=== PATIENT | female | born 1965 ===

== ENCOUNTER 2017-04-30 12:41 | Observation (INO) | payer MEDICARE ==
[2017-04-30 12:42] VITALS: BMI 32.4
[2017-04-30 13:55] LABS: BASO % 0.5 % (0.0-2.0); EOS # 0.1 K/uL (0.0-0.7); EOS % 1.1 % (0.0-4.0); LYMPH # 1.9 K/uL (1.0-4.3); MEAN CELL VOLUME 88.8 fL (81.0-99.0); MEAN CORPUSCULAR HEMOGLOBIN 29.4 pg (27.0-31.0); MEAN CORPUSCULAR HGB CONC 33.1 g/dL (33.0-37.0); MEAN PLATELET VOLUME 9.8 fL (7.2-11.7); MONO # 0.4 K/uL (0.0-0.8); MONO % 6.4 % (0.0-10.0); RED CELL DISTRIBUTION WIDTH 14.4 % (11.5-14.5)
[2017-04-30 14:33] LABS: ALB/GLOB RATIO 1.1 (1.0-2.1); ALKALINE PHOSPHATASE 98 U/L (38-126); ALT/SGPT 30 U/L (9-52); AST/SGOT 26 U/L (14-36); BILIRUBIN,TOTAL 0.9 mg/dL (0.2-1.3); BLOOD UREA NITROGEN 12 mg/dL (7-17); CALCIUM 8.9 mg/dl (8.6-10.4); CARBON DIOXIDE 28 mmol/L (22-30); CHLORIDE 100 mmol/L (98-107); GFR AFRICAN-AMERICAN > 60; GLUCOSE,RANDOM 89 mg/dL (65-105); MAGNESIUM 1.9 mg/dL (1.6-2.3); POTASSIUM 3.7 mmol/L (3.6-5.2); SODIUM 143 mmol/L (132-148); TOTAL PROTEIN 8.1 g/dL (6.3-8.3)
[2017-04-30 14:33] LABS: FREE T4 1.27 ng/dL (0.78-2.19)
[2017-04-30 14:47] LABS: THYROID STIMULATING HORMONE 4.39 mIU/L (0.46-4.68)
--- NOTE | 2017-04-30 15:27 | RAD ---
HISTORY: Chest pain COMPARISON: No prior. FINDINGS: LUNGS: No active pulmonary disease. PLEURA: No significant pleural effusion identified, no pneumothorax apparent. CARDIOVASCULAR: Normal. OSSEOUS STRUCTURES: No significant abnormalities. VISUALIZED UPPER ABDOMEN: Normal. OTHER FINDINGS: None. IMPRESSION: No acute cardiopulmonary disease appreciated.
[2017-04-30] MEDS ORDERED: Enoxaparin 80 mg Syringe SC STA (15:28)
--- NOTE | 2017-04-30 15:34 | C.PDOC ---
Time Seen by Provider: 04/30/17 13:24 Chief Complaint (Nursing): Chest Pain History Per: Patient Onset/Duration Of Symptoms: Days (3), Intermittent Episodes Current Symptoms Are (Timing): Still Present Severity: Moderate Quality: Sharp, "Pain" Associated Symptoms: Diaphoresis, Other (Palpitations) Modifying Factors: Other Indicated Below Exacerbating Factors: Deep Breathing Alleviating Factors: None Additional History Per: Prior Records Past Medical History Reviewed: Historical Data, Nursing Documentation, Vital Signs Vital Signs: Last Vital Signs Temp 97.8 F 04/30/17 12:57 Pulse 74 04/30/17 12:57 Resp 17 04/30/17 12:57 BP 116/79 04/30/17 12:57 Pulse Ox 100 04/30/17 15:36 - Medical History PMH: Back Problems (herniated discs x 6), Fibromyalgia, Hypothyroidism - [facility] Procedures HEMORRHOIDECTOMY (11/11/12) OTH LOCAL EXC OR DEST OF LESION OR TISSUE OF ANUS (11/11/12) POST SPHINCTEROTOMY (11/11/12) RIGID PROCTOSIGMOIDOSCOPY (11/11/12) Family History: States: Unknown Family Hx - Social History Hx Tobacco Use: No Hx Alcohol Use: No Hx Substance Use: No - Immunization History Hx Tetanus Toxoid Vaccination: No Hx Influenza Vaccination: No Hx Pneumococcal Vaccination: No Review Of Systems Except As Marked, All Systems Reviewed And Found Negative. Constitutional: Negative for: Fever Cardiovascular: Positive for: Chest Pain, Palpitations, Light Headedness Respiratory: Positive for: Shortness of Breath. Negative for: Hemoptysis Gastrointestinal: Negative for: Vomiting, Abdominal Pain Musculoskeletal: Negative for: Neck Pain Skin: Negative for: Rash Neurological: Negative for: Weakness, Numbness Physical Exam - Physical Exam Appears: Non-toxic, No Acute Distress Skin: Normal Color, Warm, Dry, No Rash Head: Atraumatic, Normacephalic Eye(s): bilateral: PERRL, EOMI Neck: Normal ROM, Supple Chest: Symmetrical, No Deformity, No Tenderness Cardiovascular: Rhythm Regular Respiratory: Normal Breath Sounds, No Accessory Muscle Use Gastrointestinal/Abdominal: Soft, No Tenderness Back: No CVA Tenderness Extremity: Normal ROM, No Pedal Edema, No Calf Tenderness Neurological/Psych: Oriented x3, Normal Motor, Normal Sensation ED Course And Treatment - Laboratory Results Result Diagrams: 04/30/17 13:51 04/30/17 14:16 Interpretation Of Abnormal: D-Dimer is positive. ECG: Interpreted By Me, Viewed By Me ECG Rhythm: Sinus Rhythm, 1st Degree HB, Nonspecific Changes ECG Interpretation: No Acute Changes Rate From EC O2 Sat by Pulse Oximetry: 100 Pulse Ox Interpretation: Normal - Radiology CXR: Interpreted by Me, Viewed By Me CXR Interpretation: Yes: No Acute Disease Progress Note: Pt is refusing CTA because she states that she had a previous "reaction" to IV dye. V/Q scan will be ordered instead. Progress - Interventions Interventions:: Observation - Medications Administered Oral: Aspirin Subcutaneous: other (Lovenox) - Data Reviewed Data Reviewed: Lab, Diagnostic imaging, EKG, Old records - Patient Status Patient status: Partially improved - Continuity of Care Discussed patient case with:: Patient, Family-HIPPA compliant, ED Nurse, Covering for PMD Disposition Discussed With : Jackson Martinez Comment: He accepted pt on hospitalist service. Doctor Will See Patient In The: Hospital Counseled Patient/Family Regarding: Studies Performed, Diagnosis - Disposition Disposition: HOSPITALIZED Disposition Time: 15:39 Condition: FAIR - Clinical Impression Clinical Impression: Chest pain, Heart palpitations
[2017-04-30] MEDS ORDERED: Enoxaparin 80 mg Syringe ONE (15:42)
[2017-04-30 16:04] LABS: FREE T4 1.36 ng/dL (0.78-2.19)
[2017-04-30 16:18] LABS: THYROID STIMULATING HORMONE 3.68 mIU/L (0.46-4.68)
--- NOTE | 2017-04-30 16:18 | CP.PCM.HP ---
History of Present Illness - History of Present Illness History of Present Illness: HPI: Patient is a 52 year old female with past medical history of hypothyroidism , palpitations, and rectal abscess and fistula and lumbar herniated discs, who presents to the ED with intense palpitations that started this morning at 10am while driving. Patient states that she has been having intermittent chest discomfort, pain on inspiration and palpitations for the past 3 days. Patient states that her pain on inspiration radiates to her left upper back and below her left breast. Patient states that her symptoms are exacerbated with bending, lifting and laying down and better when she takes her iron supplement. Patient recently had a cardiac catherization November 27 for palpitation work-up, however , patient was told that her results were normal PMD: Dr. Abbott Healthy Proxy: No written advance directive PMHx: Hypothyroidism, palpitations, and rectal abscess and fistula, lumbar herniated disc PSHx: Cardiac catherization (November 27) [place] [facility] [place] Rectal abscess/fistula surgery X4 FHx: * Mother: HTN and age 75 * Father: Healthy, age 72 * Maternal grandmother: from complications of endometrial cancer Medications: Levothyroxine 75 mcg PO daily, iron supplements and multivitamins Allergies: Questionable dye allergy ( Patient she had a reaction to dye during her cardiac catherization with symptoms of weakness and feeling sick) Social History: On disability, lives with and daughter. Denies former and current use of tobacco, ETOH and illicit drug use Present on Admission - Present on Admission Any Indicators Present on Admission: No Review of Systems - Constitutional Constitutional: Weakness. absent: Chills, Fever, Headache - EENT Eyes: absent: Blurred Vision, Change in Vision Ears: Dizziness - Cardiovascular Cardiovascular: Dyspnea, Lightheadedness, Palpitations. absent: Chest Pain, Chest Pain at Rest, Leg Edema, Pedal Edema, Syncope Additional comments: Chest discomfort - Gastrointestinal Gastrointestinal: absent: Abdominal Pain, Constipation, Diarrhea, Nausea, Vomiting - Neurological Neurological: Dizziness, Headaches, Weakness. absent: Syncope - Psychiatric Psychiatric: absent: Anxiety - Endocrine Endocrine: Fatigue, Palpitations Past Patient History - Past Social History Smoking Status: Never Smoked - CARDIAC Hx Pacemaker: No - ENDOCRINE/METABOLIC Hx Hypothyroidism: Yes - HEMATOLOGICAL/ONCOLOGICAL Hx Blood Transfusions: No Hx Blood Transfusion Reaction: No - MUSCULOSKELETAL/RHEUMATOLOGICAL Hx Musculoskeletal Disorders: Yes (FIBROMYALGIA) - PSYCHIATRIC Hx Substance Use: No - SURGICAL HISTORY Hx Surgeries: Yes (SIGMOIDOSCOPY AND DRAINAGE OF RECTAL ABSCESS) - ANESTHESIA Hx Anesthesia Reactions: No Hx Malignant Hyperthermia: No Meds Allergies/Adverse Reactions: Allergies Allergy/AdvReac Type Severity Reaction Status Date / Time Egg Derived Allergy Intermediate DIARRHEA Verified 04/30/17 13:10 Milk Containing Products Allergy Intermediate DIARRHEA Verified 04/30/17 13:10 Physical Exam - Constitutional Appears: No Acute Distress - Head Exam Head Exam: ATRAUMATIC, NORMAL INSPECTION - Eye Exam Eye Exam: EOMI, Normal appearance - ENT Exam ENT Exam: Mucous Membranes Moist - Respiratory Exam Respiratory Exam: Clear to Auscultation Bilateral, NORMAL BREATHING PATTERN. absent: Accessory Muscle Use, Decreased Breath Sounds, Prolonged Expiratory Phase, Respiratory Distress - Cardiovascular Exam Cardiovascular Exam: REGULAR RHYTHM, +S1, +S2. absent: Tachycardia - GI/Abdominal Exam GI & Abdominal Exam: Normal Bowel Sounds, Soft. absent: Diminished Bowel Sounds , Distended, Firm, Guarding, Tenderness - Extremities Exam Extremities exam: Positive for: normal inspection, tenderness. Negative for: calf tenderness, pedal edema Additional comments: Tenderness in the right medial thigh since cardiac catherization (11/27/16) - Neurological Exam Neurological exam: Alert, Oriented x3 - Psychiatric Exam Psychiatric exam: Normal Affect, Normal Mood - Skin Skin Exam: Normal Color Results - Vital Signs Recent Vital Signs: Last Vital Signs Temp 97.8 F 04/30/17 12:57 Pulse 74 04/30/17 12:57 Resp 17 04/30/17 12:57 BP 116/79 04/30/17 12:57 Pulse Ox 100 04/30/17 15:39 - Labs Result Diagrams: 04/30/17 13:51 04/30/17 14:16 Labs: Laboratory Results - last 24 hr 04/30/17 04/30/17 04/30/17 13:51 13:51 14:16 WBC 7.0 RBC 5.07 Hgb 14.9 Hct 45.0 MCV 88.8 MCH 29.4 MCHC 33.1 RDW 14.4 Plt Count 198 MPV 9.8 Neut % (Auto) 65.0 Lymph % (Auto) 27.0 Ballard % (Auto) 6.4 Eos % (Auto) 1.1 Baso % (Auto) 0.5 Neut # 4.6 Lymph # 1.9 Ballard # 0.4 Eos # 0.1 Baso # 0.0 PT 10.9 INR 1.0 APTT 41 H D-Dimer, Quantitative 352 H Sodium Potassium Chloride Carbon Dioxide Anion Gap BUN Creatinine Est GFR ( Amer) Est GFR (Non-Af Amer) Random Glucose Calcium Magnesium Total Bilirubin AST ALT Alkaline Phosphatase Troponin I NT-Pro-B Natriuret Pep Total Protein Albumin Globulin Albumin/Globulin Ratio Free T4 1.27 TSH 3rd Generation 4.39 04/30/17 04/30/17 14:16 14:34 WBC RBC Hgb Hct MCV MCH MCHC RDW Plt Count MPV Neut % (Auto) Lymph % (Auto) Ballard % (Auto) Eos % (Auto) Baso % (Auto) Neut # Lymph # Ballard # Eos # Baso # PT INR APTT D-Dimer, Quantitative Sodium 143 Potassium 3.7 Chloride 100 Carbon Dioxide 28 Anion Gap 18 BUN 12 Creatinine 0.7 Est GFR ( Amer) > 60 Est GFR (Non-Af Amer) > 60 Random Glucose 89 Calcium 8.9 Magnesium 1.9 Total Bilirubin 0.9 AST 26 ALT 30 Alkaline Phosphatase 98 Troponin I < 0.0120 NT-Pro-B Natriuret Pep 65.5 Total Protein 8.1 Albumin 4.3 Globulin 3.8 Albumin/Globulin Ratio 1.1 Free T4 1.36 TSH 3rd Generation Assessment & Plan (1) Atypical chest pain Assessment and Plan: Admit to observation, telemetry * YARI panel negative X1, F/u YARI x2 * EKG: NSR, first heart degree * TSH: 4.39, Free T4: 1.27 * D-dimer: 352 Status: Acute (2) Elevated d-dimer Assessment and Plan: On admission: D-dimer: [address] angiogram, due to reaction to dye during her recent cardiac catherization with symptoms of weakness and feeling sick). Dr. Ellis try to convince the patient for a CT angiogram at length but patient continues to refuse, thus a V/Q scan was obtained. F/u V/Q scan F/u b/l LE venous doppler Management: * Lovenox 80mg SC daily once Status: Acute (3) History of hypothyroidism Assessment and Plan: Labs: * TSH: 4.39, Free T4: 1.27 Continue home medication: * Levothyroxine 75mcg PO daily Status: Acute (4) Prophylactic measure Assessment and Plan: GI: not indicated DVT: Risk score: 2, received Lovenox 80mg SC. Will restart lovenox in the am Status: Acute
--- NOTE | 2017-04-30 17:33 | NM ---
COMPARISON: 04/30/2017 TECHNIQUE: 8.9 mCi technetium 99-m Xe-133 Gas. 3.9 mCI technetium 99-m MAA administered intravenously. FINDINGS: VENTILATION COMPONENT: Normal. PERFUSION COMPONENT: Heterogeneous distribution of radionuclide. No geographic, segmental, lobar abnormalities apparent on the present examination. IMPRESSION: Low probability ventilation perfusion scan for pulmonary embolism.
[2017-05-01 01:34] VITALS: RESP 20
[2017-05-01] MEDS ORDERED: Levothyroxine 75 MCG TAB PO SCH (06:30)
[2017-05-01 08:09] VITALS: BP 105/69; PULSE 60; TEMP 97.9; O2SAT 97
[2017-05-01] MEDS ORDERED: Enoxaparin 80 mg Syringe SC SCH (10:00)
--- NOTE | 2017-05-01 10:45 | CP.PCM.PN ---
Subjective - Date & Time of Evaluation Date of Evaluation: 05/01/17 Time of Evaluation: 10:15 - Subjective Subjective: Hospitalist Progress Note Patient was seen and examined at 10:15 AM 05/01/17 665 A Patient was admitted on evening of 04/30/17 for evaluation of left sided chest pain that was radiating to her left back. D-dimer was elevated and CT Angio Chest was recommended to rule out PE as well as Aortic Dissection. However, patient declined due to her response to contrast dye S/P Cardiac Catheterization in October 2016: she stated that it caused her to be tired and "layed up in bed for 2 months". I explained to that I did not believe that this was due to conrast dye from the catheterization and explained in detail the importance of ruling out PE and Aortic Dissection. However, patient declined. V/ Q Scan was done and showed low probability for PE. Venous Dopplers of the legs did not show any DVT. Cardiac Troponin x 3 were negative and EKG was also unremarkable. [place] [facility] [place] which was negative as per patient. I spoke with Adoption Manager Dr. So who explained to me that he would be happy to follow up patient in the office. Patient is chest pain free this morning. Her vitals are stable. For her history of Rectal Abscess (none noted on Rectal Exam by me with ER nurse on 04/30/17 and no evidence of perirectal lesions/fistulas) she already has follow up scheduled with her Workers Compensation Paralegal Dr. Earl for Thursday05/04/17. She stated that had enough of her home medication of Levothyroxine for her history of Hypothyroid. She is cleared for discharge. Upon ROS: NO chest pain at the moment NO SOB/Cough NO n/v/d/c (last bowel movement was yesterday) NO burning/pain with urination NO headache NO abdominal pain NO lightheadedness/dizziness NO paresthesias NO edema NO other complaints upon FULL ROS Exam: HEENT: PERRLA, EOMI, NO cervical lymphadenopathy, NO pharyngeal erythema/exudate , NO thyromegaly, Mucous Membranes are moist Cardio: NS1 and NS2, NO M/R/G Resp: CTA B/L, NO R/R/W GI: BSx4, Soft, NT, ND, NO HSM, NO guarding/rebound tenderness Ext: NO edema, Capillary Refill is 2 seconds, Pulses are strong and equal Neuro: CN II through XII are grossly intact Assessments: 1). Atypical Chest Pain 2). Elevated D-Dimer 3). Hx Hypothyroidism 4). Hx Rectal Abscess/Pain 5). Hx Fibromyalgia The following instructions were explained to patient and copy will be provided to her upon discharge: 1). Please make sure to follow up with your Primary Care Physician Dr. Lauri Abbott in the next 7 to 10 days. 2). Through Dr. Abbott's office obtain referral for Adoption Manager Dr. So and schedule an appointment with him for further cardiac evaluation by calling [phone]. 3). Follow up as scheduled with your Workers Compensation Paralegal Dr. Earl on Thursday05/04/17 for your history of rectal pain/abscess. 4). As discussed with you in the emergency room on 04/30/17, we do recommend that you get CT Angiogram Chest with contrast performed for further evaluation of the arteries in your chest to make sure that there is no tears in the arteries. You can get this done through your Primary Care Physician Dr. Lauri Abbott. 5). Please continue your home medication of Levothyroxine which you stated you had enough of. 6). Please also follow up with a Pharmacist In Charge for your history of Fibromyalgia. Obtain consult through your Primar Care Physician Dr. Lauri Abbott. 7). Please take care and be well. Jackson Martinez D.O. Objective - Vital Signs/Intake and Output Vital Signs (last 24 hours): Temp Pulse Resp BP Pulse Ox 97.9 F 60 20 105/69 97 05/01/17 08:08 05/01/17 08:08 05/01/17 08:08 05/01/17 08:08 05/01/17 08:08 Intake and Output: 05/01/17 05/01/17 06:59 18:59 Intake Total 150 Balance 150 - Medications Medications: Current Medications Enoxaparin Sodium (Lovenox) 80 mg SC DAILY [facility] Levothyroxine Sodium (Synthroid) 75 mcg PO DAILY@0630 [facility] Last Admin: 05/01/17 05:52 Dose: 75 mcg - Labs Labs: 04/30/17 13:51 04/30/17 14:16 PT 10.9 SECONDS (9.7-12.2) 04/30/17 14:16 INR 1.0 04/30/17 14:16 APTT 41 SECONDS (21-34) H 04/30/17 14:16
--- NOTE | 2017-05-01 15:07 | VASCLAB ---
PROCEDURE: Lower Extremity Venous Duplex Exam. HISTORY: Palpitations, chest discomfort and elevated D-dimer PRIORS: None. TECHNIQUE: Bilateral common femoral, femoral, popliteal and posterior tibial, peroneal and great saphenous veins were evaluated. Flow was assessed with color Doppler, compressibility, assessment of phasic flow and augmentation response. Report prepared by ANTONIETA Browne, RVT FINDINGS: RIGHT: 1. Common Femoral Vein: 1.1. Compressibility - Fully compressible: Thrombus - None : Flow - Phasic: Augmentation -Normal: Reflux - None. 2. Femoral Vein: 2.1. Compressibility - Fully compressible: Thrombus - None : Flow - Phasic: Augmentation -Normal: Reflux - None. 3. Popliteal Vein: 3.1. Compressibility - Fully compressible: Thrombus - None : Flow - Phasic: Augmentation -Normal: Reflux - None. 4. Posterior Tibial Vein: 4.1. Compressibility - Fully compressible: Thrombus - None: Flow - Phasic: Augmentation -Normal: Reflux - None. 5. Peroneal Vein: 5.1. Compressibility - Fully compressible: Thrombus - None: Flow - Phasic: Augmentation -Normal: Reflux - None. 6. Great Saphenous Vein: 6.1. Compressibility - Fully compressible: Thrombus - None: Flow - Phasic: Augmentation - Normal: Reflux - None. LEFT: 1. Common Femoral Vein: 1.1. Compressibility - Fully compressible: Thrombus - None: Flow - Phasic: Augmentation -Normal: Reflux - None. 2. Femoral Vein: 2.1. Compressibility - Fully compressible: Thrombus - None: Flow - Phasic: Augmentation -Normal: Reflux - None. 3. Popliteal Vein: 3.1. Compressibility - Fully compressible: Thrombus - None : Flow - Phasic: Augmentation -Normal: Reflux - None. 4. Posterior Tibial Vein: 4.1. Compressibility - Fully compressible: Thrombus - None: Flow - Phasic: Augmentation -Normal: Reflux - None. 5. Peroneal Vein: 5.1. Compressibility - Fully compressible: Thrombus - None: Flow - Phasic: Augmentation -Normal: Reflux - None. 6. Great Saphenous Vein: 6.1. Compressibility - Fully compressible: Thrombus - None: Flow - Phasic: Augmentation - Normal: Reflux - None. OTHER FINDINGS: Right: None significant. Left: None significant. IMPRESSION: Right: No evidence of deep or superficial vein thrombosis of the right lower extremity. Normal valve function noted of the right side. Left: No evidence of deep or superficial vein thrombosis of the left lower extremity. Normal valve function noted of the left side.
--- NOTE | 2017-05-01 15:29 | CP.PCM.DIS ---
<Karena Dhaliwal - Last Filed: 05/01/17 15:27> Provider - Provider Date of Admission: 04/30/17 15:39 Attending physician: Jackson Martinez MD Time Spent in preparation of Discharge (in minutes): 40 Hospital Course - Lab Results Lab Results: Most Recent Lab Values WBC 7.0 K/uL (4.8-10.8) 04/30/17 13:51 RBC 5.07 Mil/uL (3.80-5.20) 04/30/17 13:51 Hgb 14.9 g/dL (11.0-16.0) 04/30/17 13:51 Hct 45.0 % (34.0-47.0) 04/30/17 13:51 MCV 88.8 fL (81.0-99.0) 04/30/17 13:51 MCH 29.4 pg (27.0-31.0) 04/30/17 13:51 MCHC 33.1 g/dL (33.0-37.0) 04/30/17 13:51 RDW 14.4 % (11.5-14.5) 04/30/17 13:51 Plt Count 198 K/uL (130-400) 04/30/17 13:51 MPV 9.8 fL (7.2-11.7) 04/30/17 13:51 Neut % (Auto) 65.0 % (50.0-75.0) 04/30/17 13:51 Lymph % (Auto) 27.0 % (20.0-40.0) 04/30/17 13:51 Tripp % (Auto) 6.4 % (0.0-10.0) 04/30/17 13:51 Eos % (Auto) 1.1 % (0.0-4.0) 04/30/17 13:51 Baso % (Auto) 0.5 % (0.0-2.0) 04/30/17 13:51 Neut # 4.6 K/uL (1.8-7.0) 04/30/17 13:51 Lymph # 1.9 K/uL (1.0-4.3) 04/30/17 13:51 Tripp # 0.4 K/uL (0.0-0.8) 04/30/17 13:51 Eos # 0.1 K/uL (0.0-0.7) 04/30/17 13:51 Baso # 0.0 K/uL (0.0-0.2) 04/30/17 13:51 PT 10.9 SECONDS (9.7-12.2) 04/30/17 14:16 INR 1.0 04/30/17 14:16 APTT 41 SECONDS (21-34) H 04/30/17 14:16 D-Dimer, Quantitative 352 ng/mlDDU (0-243) H 04/30/17 14:16 Sodium 143 mmol/L (132-148) 04/30/17 14:16 Potassium 3.7 mmol/L (3.6-5.2) 04/30/17 14:16 Chloride 100 mmol/L (98-107) 04/30/17 14:16 Carbon Dioxide 28 mmol/L (22-30) 04/30/17 14:16 Anion Gap 18 (10-20) 04/30/17 14:16 BUN 12 mg/dL (7-17) 04/30/17 14:16 Creatinine 0.7 mg/dL (0.7-1.2) 04/30/17 14:16 Est GFR ( Amer) > 60 04/30/17 14:16 Est GFR (Non-Af Amer) > 60 04/30/17 14:16 Random Glucose 89 mg/dL (65-105) 04/30/17 14:16 Calcium 8.9 mg/dl (8.6-10.4) 04/30/17 14:16 Magnesium 1.9 mg/dL (1.6-2.3) 04/30/17 14:16 Total Bilirubin 0.9 mg/dL (0.2-1.3) 04/30/17 14:16 AST 26 U/L (14-36) 04/30/17 14:16 ALT 30 U/L (9-52) 04/30/17 14:16 Alkaline Phosphatase 98 U/L (38-126) 04/30/17 14:16 Total Creatine Kinase 64 U/L (30-135) 05/01/17 03:02 CK-MB (Mass) < 0.22 ng/mL (0.0-3.38) 05/01/17 03:02 Troponin I < 0.0120 ng/mL (0.00-0.120) 05/01/17 03:02 NT-Pro-B Natriuret Pep 65.5 pg/mL (0-900) 04/30/17 14:16 Total Protein 8.1 g/dL (6.3-8.3) 04/30/17 14:16 Albumin 4.3 g/dL (3.5-5.0) 04/30/17 14:16 Globulin 3.8 gm/dL (2.2-3.9) 04/30/17 14:16 Albumin/Globulin Ratio 1.1 (1.0-2.1) 04/30/17 14:16 Free T4 1.36 ng/dL (0.78-2.19) 04/30/17 14:34 TSH 3rd Generation 3.68 mIU/L (0.46-4.68) 04/30/17 14:34 - Hospital Course Hospital Course: HPI: Patient is a 52 year old female with past medical history of hypothyroidism , palpitations, and rectal abscess and fistula and lumbar herniated discs, who presents to the ED with intense palpitations that started this morning at 10am while driving. Patient states that she has been having intermittent chest discomfort, pain on inspiration and palpitations for the past 3 days. Patient states that her pain on inspiration radiates to her left upper back and below her left breast. Patient states that her symptoms are exacerbated with bending, lifting and laying down and better when she takes her iron supplement. Patient recently had a cardiac catherization November 27 for palpitation work-up, however , patient was told that her results were normal PMD: Dr. Abbott Healthy Proxy: No written advance directive PMHx: Hypothyroidism, palpitations, and rectal abscess and fistula, lumbar herniated disc PSHx: Cardiac catherization (November 27) at [facility] and Rectal abscess/fistula surgery X4 FHx: * Mother: HTN and age 75 * Father: Healthy, age 72 * Maternal grandmother: from complications of endometrial cancer Medications: Levothyroxine 75 mcg PO daily, iron supplements and multivitamins Allergies: Questionable dye allergy ( Patient she had a reaction to dye during her cardiac catherization with symptoms of weakness and feeling sick) Social History: On disability, lives with and daughter. Denies former and current use of tobacco, ETOH and illicit drug use Hospital Course: Upon admission the following diagnostic and imaging tests were conducted: EKG: Normal Sinus Rhythm. CXR: No acute cardiopulmonary disease appreciated. Troponins were negative x3 Duplex Scan Lower Extremity Artery: No abnormal findings. Lung Scan/VQ Scan: Low probability ventilation perfusion scan for pulmonary embolism. CT Angio of the Chest was recommended to rule out PE as well as Aortic Dissection but the patient denied over the fear of allergy to contrast dye. Patient was notified about the importance of ruling out PE and Aortic Dissection , patient continued to deny the CT Angio Chest. V/Q scan and Venous Dopplers were conducted. Patient was seen this morning and did not have any chest pain. She does complain of chronic rectal pain due to her history of Rectal Abscesses. None were noted on Rectal exam. Patients vitals are stable. Patient is cleared for discharge. This is brief summary of the patients hospital course. Please review EMR for full record. The following instructions were explained to patient and copy will be provided to her upon discharge: 1). Please make sure to follow up with your Primary Care Physician Dr. Lauri Abbott in the next 7 to 10 days. 2). Through Dr. Abbott's office obtain referral for Tool Grinder Operator External Dr. So and schedule an appointment with him for further cardiac evaluation by calling [phone]. 3). Follow up as scheduled with your Dietary Aide Teacher Dr. Earl on Thursday05/04/17 for your history of rectal pain/abscess. 4). As discussed with you in the emergency room on 04/30/17, we do recommend that you get CT Angiogram Chest with contrast performed for further evaluation of the arteries in your chest to make sure that there is no tears in the arteries. You can get this done through your Primary Care Physician Dr. Lauri Abbott. 5). Please continue your home medication of Levothyroxine which you stated you had enough of. 6). Please also follow up with a Puff Iron Operator for your history of Fibromyalgia. Obtain consult through your Primar Care Physician Dr. Lauri Abbott. 7). Please take care and be well. Discharge Exam - Head Exam Head Exam: ATRAUMATIC, NORMAL INSPECTION - Eye Exam Eye Exam: EOMI, Normal appearance - ENT Exam ENT Exam: Mucous Membranes Moist - Respiratory Exam Respiratory Exam: Clear to PA & Lateral, NORMAL BREATHING PATTERN. absent: Rales, Rhonchi, Wheezes, Stridor - Cardiovascular Exam Cardiovascular Exam: REGULAR RHYTHM, RRR, +S1, +S2 - GI/Abdominal Exam GI & Abdominal Exam: Normal Bowel Sounds, Soft. absent: Tenderness - Extremities Exam Extremities exam: normal inspection - Neurological Exam Neurological exam: Alert, Oriented x3 - Psychiatric Exam Psychiatric exam: Normal Affect, Normal Mood - Skin Skin Exam: Normal Color, Warm Discharge Plan - Follow Up Plan Condition: FAIR Disposition: HOME/ ROUTINE Instructions: Chest Pain (DC), Palpitations (DC), Heart Healthy Diet (DC) Additional Instructions: The following instructions were explained to patient and copy will be provided to her upon discharge: 1). Please make sure to follow up with your Primary Care Physician Dr. Lauri Abbott in the next 7 to 10 days. 2). Through Dr. Abbott's office obtain referral for Tool Grinder Operator External Dr. So and schedule an appointment with him for further cardiac evaluation by calling [phone]. 3). Follow up as scheduled with your Dietary Aide Teacher Dr. Earl on Thursday05/04/17 for your history of rectal pain/abscess. 4). As discussed with you in the emergency room on 04/30/17, we do recommend that you get CT Angiogram Chest with contrast performed for further evaluation of the arteries in your chest to make sure that there is no tears in the arteries. You can get this done through your Primary Care Physician Dr. Lauri Abbott. 5). Please continue your home medication of Levothyroxine which you stated you had enough of. 6). Please also follow up with a Puff Iron Operator for your history of Fibromyalgia. Obtain consult through your Primar Care Physician Dr. Lauri Abbott. 7). Please take care and be well. <Jackson Martinez - Last Filed: 05/01/17 19:10> Provider - Provider Date of Admission: 04/30/17 15:39 Attending physician: Jackson Martinez MD Hospital Course - Lab Results Lab Results: Most Recent Lab Values WBC 7.0 K/uL (4.8-10.8) 04/30/17 13:51 RBC 5.07 Mil/uL (3.80-5.20) 04/30/17 13:51 Hgb 14.9 g/dL (11.0-16.0) 04/30/17 13:51 Hct 45.0 % (34.0-47.0) 04/30/17 13:51 MCV 88.8 fL (81.0-99.0) 04/30/17 13:51 MCH 29.4 pg (27.0-31.0) 04/30/17 13:51 MCHC 33.1 g/dL (33.0-37.0) 04/30/17 13:51 RDW 14.4 % (11.5-14.5) 04/30/17 13:51 Plt Count 198 K/uL (130-400) 04/30/17 13:51 MPV 9.8 fL (7.2-11.7) 04/30/17 13:51 Neut % (Auto) 65.0 % (50.0-75.0) 04/30/17 13:51 Lymph % (Auto) 27.0 % (20.0-40.0) 04/30/17 13:51 Tripp % (Auto) 6.4 % (0.0-10.0) 04/30/17 13:51 Eos % (Auto) 1.1 % (0.0-4.0) 04/30/17 13:51 Baso % (Auto) 0.5 % (0.0-2.0) 04/30/17 13:51 Neut # 4.6 K/uL (1.8-7.0) 04/30/17 13:51 Lymph # 1.9 K/uL (1.0-4.3) 04/30/17 13:51 Tripp # 0.4 K/uL (0.0-0.8) 04/30/17 13:51 Eos # 0.1 K/uL (0.0-0.7) 04/30/17 13:51 Baso # 0.0 K/uL (0.0-0.2) 04/30/17 13:51 PT 10.9 SECONDS (9.7-12.2) 04/30/17 14:16 INR 1.0 04/30/17 14:16 APTT 41 SECONDS (21-34) H 04/30/17 14:16 D-Dimer, Quantitative 352 ng/mlDDU (0-243) H 04/30/17 14:16 Sodium 143 mmol/L (132-148) 04/30/17 14:16 Potassium 3.7 mmol/L (3.6-5.2) 04/30/17 14:16 Chloride 100 mmol/L (98-107) 04/30/17 14:16 Carbon Dioxide 28 mmol/L (22-30) 04/30/17 14:16 Anion Gap 18 (10-20) 04/30/17 14:16 BUN 12 mg/dL (7-17) 04/30/17 14:16 Creatinine 0.7 mg/dL (0.7-1.2) 04/30/17 14:16 Est GFR ( Amer) > 60 04/30/17 14:16 Est GFR (Non-Af Amer) > 60 04/30/17 14:16 Random Glucose 89 mg/dL (65-105) 04/30/17 14:16 Calcium 8.9 mg/dl (8.6-10.4) 04/30/17 14:16 Magnesium 1.9 mg/dL (1.6-2.3) 04/30/17 14:16 Total Bilirubin 0.9 mg/dL (0.2-1.3) 04/30/17 14:16 AST 26 U/L (14-36) 04/30/17 14:16 ALT 30 U/L (9-52) 04/30/17 14:16 Alkaline Phosphatase 98 U/L (38-126) 04/30/17 14:16 Total Creatine Kinase 64 U/L (30-135) 05/01/17 03:02 CK-MB (Mass) < 0.22 ng/mL (0.0-3.38) 05/01/17 03:02 Troponin I < 0.0120 ng/mL (0.00-0.120) 05/01/17 03:02 NT-Pro-B Natriuret Pep 65.5 pg/mL (0-900) 04/30/17 14:16 Total Protein 8.1 g/dL (6.3-8.3) 04/30/17 14:16 Albumin 4.3 g/dL (3.5-5.0) 04/30/17 14:16 Globulin 3.8 gm/dL (2.2-3.9) 04/30/17 14:16 Albumin/Globulin Ratio 1.1 (1.0-2.1) 04/30/17 14:16 Free T4 1.36 ng/dL (0.78-2.19) 04/30/17 14:34 TSH 3rd Generation 3.68 mIU/L (0.46-4.68) 04/30/17 14:34 Attending/Attestation - Attestation I have personally seen and examined this patient.: Yes I have fully participated in the care of the patient.: Yes I have reviewed all pertinent clinical information, including history, physical exam and plan: Yes Notes (Text): 05/01/17 19:07 Patient was seen and examined (please see my note as well). Jackson Martinez D.O.
--- NOTE | 2017-05-02 10:25 | CARD ---
APPROVED REPORT EKG Measurement Heart [id number] <Conclusion> Sinus rhythm with 1st degree AV block Otherwise normal ECG
--- NOTE | 2017-05-02 10:25 | CARD ---
APPROVED REPORT EKG Measurement Heart [id number] MD [id number] <Conclusion> Normal sinus rhythm Nonspecific T wave abnormality Prolonged QT Abnormal ECG
--- NOTE | 2017-05-04 18:30 | CARD ---
APPROVED REPORT EKG Measurement Heart [id number] CO [id number] <Conclusion> Normal sinus rhythm Normal ECG
== END 2017-05-01 12:42 | disposition home or self-care (01) ==
LOC: C.ER 12:41 → C.9E 15:39 → C.6T 20:26
PROVIDERS: ADMIT Family Medicine; ATTEND Family Medicine
DX: R07.9 Chest pain, unspecified (principal); E03.9 Hypothyroidism, unspecified; K62.89 Other specified diseases of anus and rectum
CPT/HCPCS: 36415; 71010; 78582; 80053; 83735; 83880; 84439; 84443; 84484; 85025; 85378; 85610; 85730; 93005; 93970; 96372; 97116; 97162; 99285; A9524; A9558; G0378; G8978; G8979; J1650

== ENCOUNTER 2018-02-04 07:54 | Day surgery (SDC) | payer MEDICARE ==
[2018-02-04] MEDS ORDERED: Propofol 10 mg/ml Inj (20 ML) ONE (10:48)
[2018-02-04] MEDS ORDERED: Lactated Ringer's 500 ML IV ONE (10:56)
--- NOTE | 2018-02-04 11:02 | CP.SDSHP ---
Same Day Surgery H & P - History Proposed Procedure: endoscopy Pre-Op Diagnosis: abdom pain - Previous Medical/Surgical History Endocrine/Metabolic: Thyroid Disease - Allergies Allergies: Allergies Egg Derived Allergy (Intermediate, Verified 04/30/17 13:10) DIARRHEA Milk Containing Products Allergy (Intermediate, Verified 04/30/17 13:10) DIARRHEA Iodinated Contrast- Oral and IV Dye Adverse Reaction (Verified 01/13/18 15:31) ANGIOEDEMA - Physical Exam Vital Signs: Vital Signs 02/04/18 08:27 Temperature 97.8 F Pulse Rate 73 Respiratory 19 Rate Blood Pressure 119/78 O2 Sat by Pulse 98 Oximetry Mental Status: Alert & Oriented x3 Neuro: WNL Heart: WNL Lungs: WNL GI: WNL - {Optional Preform as Required} Abdomen: WNL - Impression Impression: abdom pain, gastritis Pt. Evaluated Today:Candidate for Anesthesia & Procedure: Yes - Date & Time Date: 02/04/18 Time: 10:50 Short Stay Discharge - Short Stay Discharge Admitting Diagnosis/Reason for Visit: EPIGASTRIC PAIN Disposition: HOME/ ROUTINE
[2018-02-04 12:22] VITALS: TEMP 97.6
[2018-02-04 12:47] VITALS: BP 121/62; PULSE 60; RESP 12; O2SAT 99
== END 2018-02-04 12:30 | disposition home or self-care (01) ==
LOC: C.ENDO 07:54
PROVIDERS: ATTEND Internal Medicine Gastroenterology
DX: R10.84 Generalized abdominal pain (principal); K26.9 Duodenal ulcer, unspecified as acute or chronic, without hemorrhage or perforation; K29.70 Gastritis, unspecified, without bleeding
CPT/HCPCS: 43239; 88305; 88342; J2001; J2704; J7120